=== PATIENT | female | born 1970 | race Caucasian/White ===

== ENCOUNTER 2019-12-25 07:13 | Day surgery (SDC) | payer BC, OTHER ==
[~2019-12-25 07:13] MED LIST: Lactated Ringers 1,000 ML IV SCH
[2019-12-25] MEDS ORDERED: Ondansetron 4 MG/2 ML SDV IV PRN (07:56)
[2019-12-25] MEDS ORDERED: Midazolam 1 MG/ML 2 ML SDV IVPUSH PRN (07:56)
[2019-12-25] MEDS ORDERED: fentaNYL 100 MCG/2 ML SDV ONE (08:59)
[2019-12-25] MEDS ORDERED: Propofol 200 MG/20 ML SDV ONE ×3 (08:59→09:56)
--- NOTE | 2019-12-26 08:41 | OR ---
PREOPERATIVE DIAGNOSIS: Screening colonoscopy. POSTOPERATIVE DIAGNOSIS: Normal total colonoscopy. ANESTHESIA: MAC anesthesia. COMPLICATIONS: None. BLOOD LOSS: None. FINDINGS: 1. Tortuous sigmoid colon. 2. No polyps were seen on this exam. 3. Of note, we had some visibility issues with the lens of the colonoscope. There was intermittent blurriness which seemed not able to be well washed as is typical. However, we took additional care on our withdrawal to ensure that there was adequate visualization of the mucosa. START TIME: 0936. CECUM TIME: 0955. STOP TIME: 1015. BOWEL PREP: [place] class 2. INDICATIONS FOR PROCEDURE: Katlyn Braden is a 49-year-old female who presents for her first screening colonoscopy. She is having no issues. No bloody or dark black stools. No change in bowel habits. Her mom had colorectal cancer at age 73. DETAILS OF PROCEDURE: After informed consent was obtained, the patient was brought to the procedure room and placed in left lower decubitus position. The colonoscope was introduced into the rectum and advanced all the way to the cecum. We had some tortuosity of the sigmoid colon which was able to be traversed after a few attempts. The ileocecal valve and appendiceal orifice were photographed. There was some staining in the right colon that was able to be washed fairly well. As we were withdrawing, we noticed that the scope was intermittently mildly blurry preventing perfect visualization of the mucosa. However, we were able to intermittently wash this and see reasonably well and took additional care examining the mucosa to ensure nothing was missed. A retroflexed view was performed and then the colonoscope was withdrawn. The patient tolerated the procedure well and was awoken from anesthesia by Anesthesia colleagues without incident. PATHOLOGY: No biopsies taken. Recommend repeat screening colonoscopy in 5 years. RKM: 12/25/2019 10:21:11 MODL: 12/25/2019 14:42:37 /[id number]
== END 2019-12-25 11:45 | disposition home or self-care (01) ==
LOC: VM.SDS 07:13
PROVIDERS: ATTEND Student in an Organized Health Care Education/Training Program
DX: Z12.11 Encounter for screening for malignant neoplasm of colon (principal); Q43.8 Other specified congenital malformations of intestine; Z01.812 Encounter for preprocedural laboratory examination; Z20.828 Contact with and (suspected) exposure to other viral communicable diseases; F32.5 Major depressive disorder, single episode, in full remission; F41.1 Generalized anxiety disorder; M85.80 Other specified disorders of bone density and structure, unspecified site; Z80.0 Family history of malignant neoplasm of digestive organs; Z88.1 Allergy status to other antibiotic agents; Z79.899 Other long term (current) drug therapy
CPT/HCPCS: 00812; J2250; J2405; J2704; J3010; J7120; U0002